=== PATIENT | male | born 1990 | race Caucasian/White ===

== ENCOUNTER 2018-02-03 10:37 | Emergency (ER) | payer SELFPAY ==
[~2018-02-03] VITALS: Ht 182.9 cm; Wt 86.4 kg
[2018-02-03 11:29] VITALS: BP 124/70; PULSE 52; RESP 18; TEMP 97.6; O2SAT 98
[2018-02-03 13:16] VITALS: BP 114/70; PULSE 44; RESP 16; TEMP 97.8; O2SAT 100
[2018-02-03 13:18] LABS: AUTOMATED NEUTROPHIL # 1.5 TH/MM3 (1.8-7.7); BASOPHIL % 0.7 % (0.0-2.0); EOSINOPHIL # 0.1 TH/MM3 (0-0.4); EOSINOPHIL % 1.7 % (0.0-4.0); HEMATOCRIT 37.4 % (39.0-51.0); HEMOGLOBIN 13.2 GM/DL (13.0-17.0); LYMPH % 48.6 % (9.0-44.0); MEAN CELL VOLUME 89.6 FL (80.0-100.0); MEAN CORPUSCULAR HEMOGLOBIN 31.6 PG (27.0-34.0); MEAN CORPUSCULAR HGB CONC 35.2 % (32.0-36.0); MEAN PLATELET VOLUME 9.6 FL (7.0-11.0); MONOCYTE # 0.4 TH/MM3 (0-0.9); PLATELET COUNT 153 TH/MM3 (150-450); RED BLOOD COUNT 4.17 MIL/MM3 (4.50-5.90); RED CELL DISTRIBUTION WIDTH 12.9 % (11.6-17.2); WHITE BLOOD COUNT 4.1 TH/MM3 (4.0-11.0)
[2018-02-03 13:36] LABS: ALT (GPT) 44 U/L (12-78); AST (GOT) 51 U/L (15-37); BICARBONATE 30.9 MEQ/L (21.0-32.0); BLOOD UREA NITROGEN 11 MG/DL (7-18); CALCIUM 8.8 MG/DL (8.5-10.1); CHLORIDE 109 MEQ/L (98-107); CREATININE 1.02 MG/DL (0.60-1.30); GLOMERULAR FILTRATION RATE 88 ML/MIN (>89); GLUCOSE,RANDOM 83 MG/DL (74-106); SODIUM (NA) 144 MEQ/L (136-145)
[2018-02-03 13:46] LABS: ACETAMINOPHEN LESS THAN 2.0 MCG/ML (10.0-30.0); ALKALINE PHOSPHATASE 65 U/L (45-117); TOTAL BILIRUBIN ADULT 0.5 MG/DL (0.2-1.0); TOTAL PROTEIN 7.2 GM/DL (6.4-8.2)
--- NOTE | 2018-02-03 14:23 | PD ---
HPI Chief Complaint: Psychiatric Symptoms Time Seen by Provider: 13:10 Travel History International Travel<30 days: No Contact w/Intl Traveler<30days: No Traveled to known affect area: No History of Present Illness HPI Pt is a 27 year old male presenting voluntarily to the ED for a psych eval. Pt reports having a panic attack right before a job interview this afternoon. He states it was paralyzing and he was crying. He reports that he had been on medication for anxiety and depression when he was 19, but not since then. He stated the meds made him feel worse. He denies any hallucinations but reports self degrading thoughts. He denies any drug or alcohol use. He has had 2 previous suicide attempts by overdose in the past. He states he will have a few days of feeling really good then feel very depressed, so much so that he had to drop out of college. Symptom onset is unknown, symptoms are moderate in nature. Pt has no physical complaints. PFSH Past Medical History Anxiety: Yes Depression: Yes Social History Alcohol Use: No Tobacco Use: No Substance Use: No Allergies-Medications (Allergen,Severity, Reaction): Coded Allergies: No Known Allergies (Unverified , 02/03/18) Review of Systems Except as stated in HPI: all other systems reviewed are Neg Psychiatric: Positive: Anxiety, Depression, Suicidal Ideations Physical Exam Narrative GENERAL: Well kept, well developed, well nourished male. Presenting in no acute distress. SKIN: Warm and dry. HEAD: Atraumatic. Normocephalic. EYES: Pupils equal and round. No scleral icterus. No injection or drainage. ENT: No nasal bleeding or discharge. Mucous membranes pink and moist. NECK: Trachea midline. No JVD. CARDIOVASCULAR: Regular rate and rhythm. RESPIRATORY: No accessory muscle use. Clear to auscultation. Breath sounds equal bilaterally. GASTROINTESTINAL: Abdomen soft, non-tender, nondistended. Hepatic and splenic margins not palpable. MUSCULOSKELETAL: Extremities without clubbing, cyanosis, or edema. No obvious deformities. NEUROLOGICAL: Awake and alert. No obvious cranial nerve deficits. Motor grossly within normal limits. Five out of 5 muscle strength in the arms and legs. Normal speech. PSYCHIATRIC: Appropriate mood and affect; insight and judgment normal. Data Data Last Documented VS Vital Signs Date Time Temp Pulse Resp B/P (MAP) Pulse Ox O2 Delivery O2 Flow Rate FiO2 02/03/18 13:16 97.8 44 16 114/70 (85) 100 Room Air Orders Orders Complete Blood Count With Diff (02/03/18 11:32) Comprehensive Metabolic Panel (02/03/18 11:32) Thyroid Stimulating Hormone (02/03/18 11:32) Psych Screen (02/03/18 11:32) Drug Screen, Random Urine (02/03/18 11:32) Alcohol (Ethanol) (02/03/18 11:32) Salicylates (Aspirin) (02/03/18 11:32) Tylenol (Acetaminophen) (02/03/18 11:32) Labs Laboratory Tests Test 02/03/18 12:50 02/03/18 12:53 Urine Opiates Screen NEG Urine Barbiturates Screen NEG Urine Amphetamines Screen NEG Urine Benzodiazepines Screen NEG Urine Cocaine Screen NEG Urine Cannabinoids Screen POS White Blood Count 4.1 TH/MM3 Red Blood Count 4.17 MIL/MM3 Hemoglobin 13.2 GM/DL Hematocrit 37.4 % Mean Corpuscular Volume 89.6 FL Mean Corpuscular Hemoglobin 31.6 PG Mean Corpuscular Hemoglobin Concent 35.2 % Red Cell Distribution Width 12.9 % Platelet Count 153 TH/MM3 Mean Platelet Volume 9.6 FL Neutrophils (%) (Auto) 38.0 % Lymphocytes (%) (Auto) 48.6 % Monocytes (%) (Auto) 11.0 % Eosinophils (%) (Auto) 1.7 % Basophils (%) (Auto) 0.7 % Neutrophils # (Auto) 1.5 TH/MM3 Lymphocytes # (Auto) 2.0 TH/MM3 Monocytes # (Auto) 0.4 TH/MM3 Eosinophils # (Auto) 0.1 TH/MM3 Basophils # (Auto) 0.0 TH/MM3 CBC Comment DIFF FINAL Differential Comment Blood Urea Nitrogen 11 MG/DL Creatinine 1.02 MG/DL Random Glucose 83 MG/DL Total Protein 7.2 GM/DL Albumin 4.0 GM/DL Calcium Level 8.8 MG/DL Alkaline Phosphatase 65 U/L Aspartate Amino Transf (AST/SGOT) 51 U/L Alanine Aminotransferase (ALT/SGPT) 44 U/L Total Bilirubin 0.5 MG/DL Sodium Level 144 MEQ/L Potassium Level 4.4 MEQ/L Chloride Level 109 MEQ/L Carbon Dioxide Level 30.9 MEQ/L Anion Gap 4 MEQ/L Estimat Glomerular Filtration Rate 88 ML/MIN Thyroid Stimulating Hormone 3rd Gen 2.270 uIU/ML Salicylates Level 1.7 MG/DL Acetaminophen Level LESS THAN 2.0 MCG/ML Ethyl Alcohol Level LESS THAN 3 MG/DL MDM Medical Decision Making Medical Screen Exam Complete: Yes Emergency Medical Condition: Yes Interpretation(s) Laboratory Tests Test 02/03/18 12:50 02/03/18 12:53 Urine Opiates Screen NEG Urine Barbiturates Screen NEG Urine Amphetamines Screen NEG Urine Benzodiazepines Screen NEG Urine Cocaine Screen NEG Urine Cannabinoids Screen POS White Blood Count 4.1 TH/MM3 Red Blood Count 4.17 MIL/MM3 Hemoglobin 13.2 GM/DL Hematocrit 37.4 % Mean Corpuscular Volume 89.6 FL Mean Corpuscular Hemoglobin 31.6 PG Mean Corpuscular Hemoglobin Concent 35.2 % Red Cell Distribution Width 12.9 % Platelet Count 153 TH/MM3 Mean Platelet Volume 9.6 FL Neutrophils (%) (Auto) 38.0 % Lymphocytes (%) (Auto) 48.6 % Monocytes (%) (Auto) 11.0 % Eosinophils (%) (Auto) 1.7 % Basophils (%) (Auto) 0.7 % Neutrophils # (Auto) 1.5 TH/MM3 Lymphocytes # (Auto) 2.0 TH/MM3 Monocytes # (Auto) 0.4 TH/MM3 Eosinophils # (Auto) 0.1 TH/MM3 Basophils # (Auto) 0.0 TH/MM3 CBC Comment DIFF FINAL Differential Comment Blood Urea Nitrogen 11 MG/DL Creatinine 1.02 MG/DL Random Glucose 83 MG/DL Total Protein 7.2 GM/DL Albumin 4.0 GM/DL Calcium Level 8.8 MG/DL Alkaline Phosphatase 65 U/L Aspartate Amino Transf (AST/SGOT) 51 U/L Alanine Aminotransferase (ALT/SGPT) 44 U/L Total Bilirubin 0.5 MG/DL Sodium Level 144 MEQ/L Potassium Level 4.4 MEQ/L Chloride Level 109 MEQ/L Carbon Dioxide Level 30.9 MEQ/L Anion Gap 4 MEQ/L Estimat Glomerular Filtration Rate 88 ML/MIN Thyroid Stimulating Hormone 3rd Gen 2.270 uIU/ML Salicylates Level 1.7 MG/DL Acetaminophen Level LESS THAN 2.0 MCG/ML Ethyl Alcohol Level LESS THAN 3 MG/DL Vital Signs Date Time Temp Pulse Resp B/P (MAP) Pulse Ox O2 Delivery O2 Flow Rate FiO2 4/18/18 13:16 97.8 44 16 114/70 (85) 100 Room Air 02/03/18 11:29 97.6 52 18 124/70 (88) 98 Differential Diagnosis Bipolar disorder vs depression vs mood disorder vs substance abuse vs other Narrative Course Pt is a 27 year old male presenting voluntarily for a psych eval secondary to suicidal ideations and panic attacks. He is well appearing and well kept. VSS. psych screen ordered. Labs reviewed, no acute findings identified. Pt is medically cleared for psychiatric evaluation. Diagnosis Primary Impression: Medical clearance for psychiatric admission Condition: Stable Josselin Vargas [employer] Feb 03, 2018 14:23
--- NOTE | 2018-02-03 17:01 | PD ---
Physical Exam Date Seen by Provider: Feb 03, 2018 Time Seen by Provider: 16:59 Narrative For full history and physical examination please see my previous note. Patient presented to emergency department voluntarily for psychiatric evaluation due to panic attacks and anxiety/depression. Data Data Last Documented VS Vital Signs Date Time Temp Pulse Resp B/P (MAP) Pulse Ox O2 Delivery O2 Flow Rate FiO2 02/03/18 13:16 97.8 44 16 114/70 (85) 100 Room Air Orders Orders Complete Blood Count With Diff (02/03/18 11:32) Comprehensive Metabolic Panel (02/03/18 11:32) Thyroid Stimulating Hormone (02/03/18 11:32) Psych Screen (02/03/18 11:32) Drug Screen, Random Urine (02/03/18 11:32) Alcohol (Ethanol) (02/03/18 11:32) Salicylates (Aspirin) (02/03/18 11:32) Tylenol (Acetaminophen) (02/03/18 11:32) Diet Regular Basic (02/03/18 Dinner) Ed Discharge Order (02/03/18 16:59) Labs Laboratory Tests Test 02/03/18 12:50 02/03/18 12:53 Urine Opiates Screen NEG Urine Barbiturates Screen NEG Urine Amphetamines Screen NEG Urine Benzodiazepines Screen NEG Urine Cocaine Screen NEG Urine Cannabinoids Screen POS White Blood Count 4.1 TH/MM3 Red Blood Count 4.17 MIL/MM3 Hemoglobin 13.2 GM/DL Hematocrit 37.4 % Mean Corpuscular Volume 89.6 FL Mean Corpuscular Hemoglobin 31.6 PG Mean Corpuscular Hemoglobin Concent 35.2 % Red Cell Distribution Width 12.9 % Platelet Count 153 TH/MM3 Mean Platelet Volume 9.6 FL Neutrophils (%) (Auto) 38.0 % Lymphocytes (%) (Auto) 48.6 % Monocytes (%) (Auto) 11.0 % Eosinophils (%) (Auto) 1.7 % Basophils (%) (Auto) 0.7 % Neutrophils # (Auto) 1.5 TH/MM3 Lymphocytes # (Auto) 2.0 TH/MM3 Monocytes # (Auto) 0.4 TH/MM3 Eosinophils # (Auto) 0.1 TH/MM3 Basophils # (Auto) 0.0 TH/MM3 CBC Comment DIFF FINAL Differential Comment Blood Urea Nitrogen 11 MG/DL Creatinine 1.02 MG/DL Random Glucose 83 MG/DL Total Protein 7.2 GM/DL Albumin 4.0 GM/DL Calcium Level 8.8 MG/DL Alkaline Phosphatase 65 U/L Aspartate Amino Transf (AST/SGOT) 51 U/L Alanine Aminotransferase (ALT/SGPT) 44 U/L Total Bilirubin 0.5 MG/DL Sodium Level 144 MEQ/L Potassium Level 4.4 MEQ/L Chloride Level 109 MEQ/L Carbon Dioxide Level 30.9 MEQ/L Anion Gap 4 MEQ/L Estimat Glomerular Filtration Rate 88 ML/MIN Thyroid Stimulating Hormone 3rd Gen 2.270 uIU/ML Salicylates Level 1.7 MG/DL Acetaminophen Level LESS THAN 2.0 MCG/ML Ethyl Alcohol Level LESS THAN 3 MG/DL MDM Medical Record Reviewed: Yes Supervised Visit with LI: No Interpretation(s) Laboratory Tests Test 02/03/18 12:50 02/03/18 12:53 Urine Opiates Screen NEG Urine Barbiturates Screen NEG Urine Amphetamines Screen NEG Urine Benzodiazepines Screen NEG Urine Cocaine Screen NEG Urine Cannabinoids Screen POS White Blood Count 4.1 TH/MM3 Red Blood Count 4.17 MIL/MM3 Hemoglobin 13.2 GM/DL Hematocrit 37.4 % Mean Corpuscular Volume 89.6 FL Mean Corpuscular Hemoglobin 31.6 PG Mean Corpuscular Hemoglobin Concent 35.2 % Red Cell Distribution Width 12.9 % Platelet Count 153 TH/MM3 Mean Platelet Volume 9.6 FL Neutrophils (%) (Auto) 38.0 % Lymphocytes (%) (Auto) 48.6 % Monocytes (%) (Auto) 11.0 % Eosinophils (%) (Auto) 1.7 % Basophils (%) (Auto) 0.7 % Neutrophils # (Auto) 1.5 TH/MM3 Lymphocytes # (Auto) 2.0 TH/MM3 Monocytes # (Auto) 0.4 TH/MM3 Eosinophils # (Auto) 0.1 TH/MM3 Basophils # (Auto) 0.0 TH/MM3 CBC Comment DIFF FINAL Differential Comment Blood Urea Nitrogen 11 MG/DL Creatinine 1.02 MG/DL Random Glucose 83 MG/DL Total Protein 7.2 GM/DL Albumin 4.0 GM/DL Calcium Level 8.8 MG/DL Alkaline Phosphatase 65 U/L Aspartate Amino Transf (AST/SGOT) 51 U/L Alanine Aminotransferase (ALT/SGPT) 44 U/L Total Bilirubin 0.5 MG/DL Sodium Level 144 MEQ/L Potassium Level 4.4 MEQ/L Chloride Level 109 MEQ/L Carbon Dioxide Level 30.9 MEQ/L Anion Gap 4 MEQ/L Estimat Glomerular Filtration Rate 88 ML/MIN Thyroid Stimulating Hormone 3rd Gen 2.270 uIU/ML Salicylates Level 1.7 MG/DL Acetaminophen Level LESS THAN 2.0 MCG/ML Ethyl Alcohol Level LESS THAN 3 MG/DL Vital Signs Date Time Temp Pulse Resp B/P (MAP) Pulse Ox O2 Delivery O2 Flow Rate FiO2 02/03/18 13:16 97.8 44 16 114/70 (85) 100 Room Air 02/03/18 11:29 97.6 52 18 124/70 (88) 98 Narrative Course Patient presented voluntarily to the emergency department for psychiatric evaluation. Patient was seen and evaluated, medically cleared. He was then seen by the psychiatric nurse practitioner, Mario Bae. Patient was given a list of outpatient resources, patient's mother was also spoken to. Patient is agreeable to outpatient follow-up. Patient stable for discharge Diagnosis Primary Impression: Mood disorder Referrals: [facility] Patient Instructions: General Instructions Additional Instruction: Follow-up with Chad Muhammad as advised Return to emergency department immediately for any new or worsening symptoms Med/Other Pt SpecificInfo: No Change to Meds Disposition: 01 DISCHARGE HOME Condition: Stable Josselin Vargas Feb 03, 2018 17:01
--- NOTE | 2018-02-03 17:26 | PD ---
History of Present Illness Chief Complaint: Psychiatric Symptoms Time Seen by Provider: 16:50 Travel History International Travel<30 Days: No Contact w/Intl Traveler<30days: No Known affected area: No Legal Status Legal Status: Voluntary History of Present Illness: 27-year-old single, male who presents voluntarily to the ED with complaints of anxiety and panic. Patient reports that he went to a new job today but when he arrived he began "sobbing uncontrollably and began hyperventilating and was unable to get out of the car". Reviewed electronic medical record, labs, discuss case with staff. Evaluation was performed in patient's room in [facility]. Patient is awake, alert, and oriented 4. His speech is clear, logical, and organized. There is no indication of internal stimulation. He denies feeling suicidal, homicidal, or experiencing visual or auditory hallucinations. Patient reports 2 previous suicidal attempts both by overdose of "sleeping pills". He states that he has been off of medications for quite some time now. Patient reports that what he would like to get is information on resources for outpatient treatment. Nursing staff spoke with patient's mother and corroborated that she is comfortable with him coming home. Patient will follow-up at [facility] tomorrow to establish care. [facility] Past Medical History Anxiety: Yes Depression: Yes Psychiatric History Psychiatric History Previous inpatient admission for attempted suicide by overdose. Hx [place]iatric [place] x 1 week @ 19 y/o History of Inpatient Treatment: Yes Guns or firearms in home: No Social History Patient lives with his mother. Tox screen positive for cannabinoids. Hx Alcohol Use: No Hx Tobacco Use: No Hx Substance Use: No Substance Use Type: Marijuana Hx of Substance Use Treatment: No Family Psychiatric History Patient reports family history of bipolar. Allergies-Medications (Allergen,Severity, Reaction): Coded Allergies: No Known Allergies (Unverified , 02/03/18) Mental Status Examination Appearance: Appropriate Consciousness: Alert Orientation: x4 Motor Activity: Normal gait Speech: Unremarkable Language: Adequate Fund of Knowledge: Adequate Attention and Concentration: Adequate Memory: Unremarkable Mood: Appropriate Affect: Appropriate Thought Process & Associations: Intact Thought Content: Appropriate Hallucination Type: None Delusion Type: None Suicidal Ideation: No Suicidal Plan: No Suicidal Intention: No Homicidal Ideation: No Homicidal Plan: No Homicidal Intention: No Insight: Adequate Judgment: Adequate [facility] Medical Decision Making Medical Record Reviewed: Yes Assessment/Plan 27-year-old single, male presents voluntarily to this facility for reported panic and anxiety. Patient resides with his mother. He states that he went to start a new job and after arriving he began "sobbing uncontrollably hyperventilating" and was unable to go into the new job. At this time patient is awake, alert, and oriented 4. His speech is clear, logical, and organized. He denies any thoughts of self-harm, homicidal ideation, auditory or visual hallucinations. There is no internal stimuli. There is no indication of thought blocking. I can elicit no delusional material. Patient states that he would like to establish outpatient and is requesting resource information. Patient is being referred to follow-up outpatient at [facility] as he does not meet inpatient admission criteria at this time. Collaborating information was obtained from his mother who is okay with him coming home and will pick him up. Patient advised to follow-up early tomorrow morning at [facility] outpatient. He further was advised to return to this facility if his condition should worsen. Orders Orders Complete Blood Count With Diff (02/03/18 11:32) Comprehensive Metabolic Panel (02/03/18 11:32) Thyroid Stimulating Hormone (02/03/18 11:32) Psych Screen (02/03/18 11:32) Drug Screen, Random Urine (02/03/18 11:32) Alcohol (Ethanol) (02/03/18 11:32) Salicylates (Aspirin) (02/03/18 11:32) Tylenol (Acetaminophen) (02/03/18 11:32) Diet Regular Basic (02/03/18 Dinner) Ed Discharge Order (02/03/18 16:59) Results Vital Signs Date Time Temp Pulse Resp B/P (MAP) Pulse Ox O2 Delivery O2 Flow Rate FiO2 02/03/18 13:16 97.8 44 16 114/70 (85) 100 Room Air 02/03/18 11:29 97.6 52 18 124/70 (88) 98 Laboratory Tests Test 02/03/18 12:50 02/03/18 12:53 Urine Opiates Screen NEG Urine Barbiturates Screen NEG Urine Amphetamines Screen NEG Urine Benzodiazepines Screen NEG Urine Cocaine Screen NEG Urine Cannabinoids Screen POS White Blood Count 4.1 Red Blood Count 4.17 Hemoglobin 13.2 Hematocrit 37.4 Mean Corpuscular Volume 89.6 Mean Corpuscular Hemoglobin 31.6 Mean Corpuscular Hemoglobin Concent 35.2 Red Cell Distribution Width 12.9 Platelet Count 153 Mean Platelet Volume 9.6 Neutrophils (%) (Auto) 38.0 Lymphocytes (%) (Auto) 48.6 Monocytes (%) (Auto) 11.0 Eosinophils (%) (Auto) 1.7 Basophils (%) (Auto) 0.7 Neutrophils # (Auto) 1.5 Lymphocytes # (Auto) 2.0 Monocytes # (Auto) 0.4 Eosinophils # (Auto) 0.1 Basophils # (Auto) 0.0 CBC Comment DIFF FINAL Differential Comment Blood Urea Nitrogen 11 Creatinine 1.02 Random Glucose 83 Total Protein 7.2 Albumin 4.0 Calcium Level 8.8 Alkaline Phosphatase 65 Aspartate Amino Transf (AST/SGOT) 51 Alanine Aminotransferase (ALT/SGPT) 44 Total Bilirubin 0.5 Sodium Level 144 Potassium Level 4.4 Chloride Level 109 Carbon Dioxide Level 30.9 Anion Gap 4 Estimat Glomerular Filtration Rate 88 Thyroid Stimulating Hormone 3rd Gen 2.270 Salicylates Level 1.7 Acetaminophen Level LESS THAN 2.0 Ethyl Alcohol Level LESS THAN 3 Diagnosis Primary Impression: Mood disorder Psychiatrically Cleared: Yes Referrals: [facility] day Departure Forms: Tests/Procedures Patient Instructions: General Instructions, Mood Disorders (ED) Additional Instructions: Please follow up at [facility] on 02/04/2018 at 7:30 a.m. on [address] for further Evaluation and Treatment. Disposition: 01 DISCHARGE HOME Condition: Stable Bonny Douglas CALI Feb 03, 2018 17:26
[2018-02-04] MEDS ORDERED: VIST50CA PO (15:01)
== END 2018-02-03 18:08 | disposition home or self-care (01) ==
LOC: NEPJ 10:37
DX: F41.0 Panic disorder [episodic paroxysmal anxiety] (principal); F12.90 Cannabis use, unspecified, uncomplicated
CPT/HCPCS: 80053; 80307; 84443; 85025; 99283

== ENCOUNTER 2018-02-04 10:25 | Emergency (ER) | payer SELFPAY ==
[2018-02-04 10:39] VITALS: BP 130/73; PULSE 96; RESP 18; TEMP 98.1; O2SAT 98
--- NOTE | 2018-02-04 10:53 | PD ---
HPI Chief Complaint: Psychiatric Symptoms Time Seen by Provider: 10:43 Travel History International Travel<30 days: No Contact w/Intl Traveler<30days: No Traveled to known affect area: No History of Present Illness HPI 27 Amy presents emerged from under a [employer] act. He reportedly called his mom is telling him she was feeling suicidal and so she is on the call hotline which he did and then there were police at his house. He was apparently here yesterday as a voluntary patient for depression. He reports he is a history of depression. Was hospitalized at 19 for depression. Has not been on medications or followed up with a physician since. States she has had chronic depression is been ongoing but over the past month or so has had significant worsening in his symptoms. Denies any attempts to hurt himself today. Denies any recent illness or injury. No other complaints. History Past Medical History Narrative Medical History of depression Social History Alcohol Use: No Tobacco Use: No Allergies-Medications (Allergen,Severity, Reaction): Coded Allergies: No Known Allergies (Unverified , 02/03/18) Review of Systems Except as stated in HPI: all other systems reviewed are Neg Physical Exam Narrative GENERAL: 27-year-old man, nontoxic, no acute distress. SKIN: Focused skin assessment warm/dry. HEAD: Atraumatic. Normocephalic. EYES: Pupils equal and round. No scleral icterus. No injection or drainage. ENT: No nasal bleeding or discharge. Mucous membranes pink and moist. NECK: Trachea midline. No JVD. CARDIOVASCULAR: Regular rate and rhythm. No murmur appreciated. RESPIRATORY: No accessory muscle use. Clear to auscultation. Breath sounds equal bilaterally. GASTROINTESTINAL: Abdomen soft, non-tender, nondistended. Hepatic and splenic margins not palpable. MUSCULOSKELETAL: No obvious deformities. No clubbing. No cyanosis. No edema. NEUROLOGICAL: Awake and alert. No obvious cranial nerve deficits. Motor grossly within normal limits. Normal speech. PSYCHIATRIC: Flat affect. Data Data Last Documented VS Vital Signs Date Time Temp Pulse Resp B/P (MAP) Pulse Ox O2 Delivery O2 Flow Rate FiO2 02/04/18 10:39 98.1 96 18 130/73 (92) 98 MDM Medical Decision Making Medical Screen Exam Complete: Yes Emergency Medical Condition: Yes Differential Diagnosis Depression, substance-induced mood disorder, dysthymia, adjustment reaction, other Narrative Course Medical decision making Is a 27-year-old man with depression, here under a [employer] act for suicidality. Seen here yesterday is involuntary. Reviewed labs from yesterday. Patient is medically clear for psychiatric evaluation. Nik Cheung MD Feb 04, 2018 10:53
--- NOTE | 2018-02-04 10:57 | PD ---
Physical Exam Time Seen by Provider: 10:[address] Cheung's note for history and physical. Data Data Last Documented VS Vital Signs Date Time Temp Pulse Resp B/P (MAP) Pulse Ox O2 Delivery O2 Flow Rate FiO2 02/04/18 10:39 98.1 96 18 130/73 (92) 98 Orders Orders Psych Screen (02/04/18 10:51) MDM Supervised Visit with LI: Yes Narrative Course See Dr. Cheung's note for history and physical. This patient was seen here in the emergency department yesterday and had labs drawn at that time. I Do not feel repeat labs are necessary. Labs have been reviewed and are unremarkable. He was positive for marijuana. Patient is medically cleared for psych evaluation. Diagnosis Primary Impression: Medical clearance for psychiatric admission Condition: Stable Melissa Branch Feb 04, 2018 10:57
[2018-02-04] MEDS ORDERED: VIST50CA PO (15:01)
--- NOTE | 2018-02-04 15:03 | PD ---
History of Present Illness Chief Complaint: Psychiatric Symptoms Time Seen by Provider: 14:40 Travel History International Travel<30 Days: No Contact w/Intl Traveler<30days: No Known affected area: No Legal Status Legal Status: Hurley Act History of Present Illness: History of Present Illness HPI Patient is a 27-year-old, , single male 27 with self-reported history of depression and anxiety who presents to [facility] emergency department under a Hurley act initiated by law enforcement. He states that he was at home and began to feel anxious and despondent and called his mother. His mother requested that he call a suicide hotline, that had been provided to him at [facility] this morning. He states he was told that the easiest way and the quickest way to get care was to come here. He then states he called the suicide prevention hotline and while on the phone with them the police arrived at his house and proceeded to place him under a Hurley act. He denies that he made any intent to harm himself in anyway. At this time the patient is stating that he wants help and that he is looking to be able to get some medication to help him manage his symptoms. He has an appointment scheduled at [facility] on the of this month. He further states that his mother and his girlfriend are supportive and that they are available to him to help him until he is is seen at [facility]. Electronic medical record is reviewed. The patient was seen and evaluated yesterday in the emergency department after he reported having a panic attack prior to beginning a new job. He did follow up with referral to [facility] and was in fact there this morning to initiate treatment. He was given an appointment for the 15 of February which has since been moved up to the 24. Patient is seen. he is alert, oriented, maintaining basic hygiene. He has rogelio demanding to be seen quickly and is critical of ED patient care system. His speech is clear, logical, affect is variable and congruent to mood. No evidence of any psychosis, no tianna or hypomania. Patient's mood is anxious. Denies any suicidal or homicidal ideation, intent or plan. Reports sleeps well, good appetite, appropriate level of energy. He is future oriented. Has a job awaiting him at the end of the month. [facility] Past Medical History Anxiety: Yes Depression: Yes Psychiatric History Psychiatric History Hx Psychiatric Treatment: [facility] in [place] at age 19 years after reported overdose. He took medication x 2 months only. No hx of self injurious behavior. History of Inpatient Treatment: Yes Guns or firearms in home: No Social History Single, has completed some college, currently unemployed, lives with his mom. No reported hx of abuse. No legal hx Hx Alcohol Use: No Hx Tobacco Use: No Hx Substance Use: No Substance Use Type: Marijuana Hx of Substance Use Treatment: No Family Psychiatric History Father treated with antidepressants. Mother and father treated with anxiolytics. Allergies-Medications (Allergen,Severity, Reaction): Coded Allergies: No Known Allergies (Unverified , 02/03/18) Reported Meds & Prescriptions Reported Meds & Active Scripts Active Vistaril (Hydroxyzine Pamoate) 50 Mg Cap 50 Mg PO TID 5 Days Review of Systems Psychiatric: COMPLAINS OF: Anxiety Except as stated in HPI: all other systems reviewed are Neg Mental Status Examination Appearance: Appropriate Consciousness: Alert Orientation: x4 Motor Activity: Normal gait Speech: Unremarkable Language: Adequate Fund of Knowledge: Adequate Attention and Concentration: Adequate Memory: Unremarkable Mood: Anxious Affect: Appropriate Thought Process & Associations: Intact, Logical, Goal directed Thought Content: Appropriate Hallucination Type: None Delusion Type: None Suicidal Ideation: No Suicidal Plan: No Suicidal Intention: No Homicidal Ideation: No Homicidal Plan: No Homicidal Intention: No Insight: Fair Judgment: Impulsive MDM Medical Decision Making Medical Record Reviewed: Yes Assessment/Plan Patient is a 27-year-old, , single male 27 with self-reported history of depression and anxiety who presents to [facility] emergency department under a Hurley act initiated by law enforcement. He states that he was at home and began to feel anxious and despondent and called his mother. His mother requested that he call a suicide hotline, that had been provided to him at [facility] this morning. He states he was told that the easiest way and the quickest way to get care was to come here. He then states he called the suicide prevention hotline and while on the phone with them the police arrived at his house and proceeded to place him under a Hurley act. He denies that he made any intent to harm himself in anyway. At this time the patient is stating that he wants help and that he is looking to be able to get some medication to help him manage his symptoms. He has an appointment scheduled at [facility] on the of this month. He further states that his mother and his girlfriend are supportive and that they are available to him to help him until he is is seen at [facility]. At this time he does not meet criteria to remain under the Hurley act. BA is lifted. I will provide him with a limited amount of Vistaril to help him until he is seen at [facility]. Discussion regarding medication risks benefits and side effects is provided. Orders Orders Psych Screen (02/04/18 10:51) Diet Regular Basic (02/04/18 Lunch) Results Vital Signs Date Time Temp Pulse Resp B/P (MAP) Pulse Ox O2 Delivery O2 Flow Rate FiO2 02/04/18 10:39 98.1 96 18 130/73 (92) 98 Diagnosis Primary Impression: Medical clearance for psychiatric admission Additional Impression: Adjustment disorder Psychiatrically Cleared: Yes Additional Instructions: Follow up with [facility] on February 09, 2018. Med/ Other Pt Specific Info: Prescription(s) given Prescriptions Hydroxyzine Pamoate (Vistaril) 50 Mg Cap 50 MG PO TID for Anxiety and/or Insomnia for 5 Days, #15 CAP 0 Refills Prov: Zohra Reynolds 02/04/18 Disposition: 01 DISCHARGE HOME Condition: Stable Problem Qualifiers Additional Impression: Adjustment disorder Qualified Codes: F43.22 - Adjustment disorder with anxiety Zohra Reynolds Feb 04, 2018 15:03
--- NOTE | 2018-02-04 15:19 | PD ---
Physical Exam Time Seen by Provider: 15:17 Narrative CALI العلي has evaluated patient, lifted the Hurley act and cleared the patient for discharge. Data Data Last Documented VS Vital Signs Date Time Temp Pulse Resp B/P (MAP) Pulse Ox O2 Delivery O2 Flow Rate FiO2 02/04/18 10:39 98.1 96 18 130/73 (92) 98 Orders Orders Psych Screen (02/04/18 10:51) Diet Regular Basic (02/04/18 Lunch) MDM Supervised Visit with LI: No Narrative Course CALI العلي has evaluated patient, lifted the Hurley act and cleared the patient for discharge. Patient contracts safety. Denies suicidal or homicidal ideations. Patient will be provided community resource packet to [facility] for follow-up. Has friends and family for support. Patient was medically cleared by alternate provider prior to psych screening. Patient has been evaluated by psychiatry and and is now cleared for discharge. Diagnosis Primary Impression: Adjustment disorder Qualified Codes: F43.22 - Adjustment disorder with anxiety Referrals: [facility] (Out patient) as needed Medication Management [facility] Primary Care Physician Psychiatrist [facility] Patient Instructions: General Instructions, Mood Disorders (ED) Departure Forms: Work Release, Enter return to work date: Feb 05, 2018 Tests/Procedures Additional Instruction: Contract safety to your self and others Follow-up with psychiatry Follow-up with primary care provider Follow-up with [facility] Return to the emergency department immediately with worsening of symptoms Med/Other Pt SpecificInfo: Prescription(s) given Scripts Hydroxyzine Pamoate (Vistaril) 50 Mg Cap 50 MG PO TID for Anxiety and/or Insomnia for 5 Days, #15 CAP 0 Refills Prov: Zohra Reynolds 02/04/18 Disposition: 01 DISCHARGE HOME Condition: Stable Jose MiguelmargretMelissa Feb 04, 2018 15:19
== END 2018-02-04 15:39 | disposition home or self-care (01) ==
LOC: NEPJ 10:25
DX: F43.22 Adjustment disorder with anxiety (principal); F32.9 Major depressive disorder, single episode, unspecified
CPT/HCPCS: 99283